=== PATIENT | female | born 1960 | race Caucasian/White ===

== ENCOUNTER 2024-02-26 08:57 | Emergency (ER) | payer MEDICARE, MEDICAID, SELFPAY ==
[2024-02-26 09:09] VITALS: BP 126/73; PULSE 84; RESP 18; TEMP 36.6; O2SAT 96
--- NOTE | 2024-02-26 09:44 | ED.EYEPROB ---
HPI - Eye Problem General Chief complaint: Eye Problems Stated complaint: Left eye Time Seen by Provider: 02/26/24 09:30 Source: patient, RN notes reviewed and old records reviewed Mode of arrival: ambulatory Limitations: no limitations History of Present Illness HPI Narrative: 63 year old female presents to [facility] with complaints of stye to the left lower eye lid which started last night with small red raised lesion noted on lower eyelid left eye. Patient reports that she had similar symptoms to the left upper eyelid 2 weeks ago which is healing. Patient voices itching sensation also to left eye with no conjunctiva redness or any discharge. MD chief complaint: eye pain and other (stye left lower lid) Onset (ago): day(s) (since last night) Location: left eye Eye Symptoms: itching and other (raised lesion along lower eyelid) Severity: mild Treatments Prior to Arrival: OTC eye drops Related Data Allergies Allergy/AdvReac Type Severity Reaction Status Date / Time No Known Allergies Allergy Verified 02/26/24 09:14 Review of Systems Review of Systems: CONSTITUTIONAL: Denies fever, chills, or sweats. EYES: Denies visual changes. Reports small red lesion along left lower eyelid with some discomfort and eye itching, no sclera or conjunctiva redness, no discharge. ENT: Denies rhinorrhea, congestion, sore throat, or otalgia. CARDIOVASCULAR: Denies chest pain, palpitations, or edema. RESPIRATORY: Denies cough or dyspnea. SKIN: Denies rash or itching. NEUROLOGIC: Denies headache All systems reviewed & are unremarkable except as noted in HPI and below PMFSH Surgical History Surgical History (Updated 02/27/24 @ 20:20 by Olivia Chacon NP) H/O: hysterectomy History of tonsillectomy Hx of appendectomy Hx of cholecystectomy Social History Social History (Updated 02/27/24 @ 20:20 by Olivia Chacon NP) Gender identity (if verbalized by the patient): Female Comments At time of signature, agree with nursing past medical, surgical, social and family history. There is no relevant family history pertinent to the presenting complaint Exam Narrative: GENERAL: Well-appearing, well-nourished, and in no acute distress. HEAD: Normocephalic, atraumatic. EYES: PERRLA and EOMI. Upper and lower eyelids unremarkable on right eye. Small red raised lesion to lower left eyelid, healing lesion of left upper eyelid. No periorbital cellulitis noted. Sclera and conjunctivae clear, no discharge reports feeling of itching of left eye, denies any sharp pain or any changes in vision. ENT: Nares clear, no rhinorrhea or epistaxis. Mucous membranes moist. NECK: Supple.no lymphadenopathy CHEST: Clear to auscultation. No respiratory distress. no cough noted SAO2 96% on room air HEART: Regular rate and rhythm. No murmur heard. Normal peripheral pulses. SKIN: Warm, dry, no rash. NEURO: No focal deficits. Alert and oriented x3. Course Course Emergency Course: Patient is aware of diagnosis, understands and agrees to treatment plan. Anticipatory guidance given. Patient agrees to follow-up as directed and is aware of reasons to seek care at the emergency department. Portions of this record may have been created with voice recognition software Level of Care: Express Care Visit Vital Signs Vital signs: Vital Signs Temperature 36.6 C 02/26/24 09:09 Pulse Rate 84 02/26/24 09:09 Respiratory Rate 18 02/26/24 09:09 Blood Pressure 126/73 02/26/24 09:09 Pulse Oximetry 96 02/26/24 09:09 Oxygen Delivery Room Air 02/26/24 09:09 Temperature 36.6 C 02/26/24 09:09 Pulse Rate 84 02/26/24 09:09 Respiratory Rate 18 02/26/24 09:09 Blood Pressure 126/73 02/26/24 09:09 Pulse Oximetry 96 02/26/24 09:09 Oxygen Delivery Room Air 02/26/24 09:09 Reviewed MDM - Eye Problem MDM Narrative Medical decision making narrative: Consideration of the following conditions may be warranted for the presenting problem,
== END 2024-02-26 10:15 | disposition home or self-care (01) ==
PROVIDERS: Emergency Provider Registered Nurse; PCP Physician Assistant
DX: H00.015 Hordeolum externum left lower eyelid (principal)
CPT/HCPCS: 99203; G0463